=== PATIENT | male | born 1940 | race Caucasian/White ===

== ENCOUNTER → 2017-03-25 | Outpatient (CLI) | payer OTHER ==
[~2017-03-25] MED LIST: ASPI1TAB83 PO; B-COTAB18 PO; CALC600T9 PO; ENAL5TAB83 PO; FINA5TAB PO; METF500T5 PO; SIMV10TA2 PO; TRAV0.00 OPB; ZINC1TAB PO; [UNRECOGNIZED DRUG - CODE] PO
[2017-03-25 09:57] LABS: ALT/SGPT 28 U/L (12-78); AST/SGOT 15 U/L (15-37); BLOOD UREA NITROGEN 19 mg/dl (7-18); BUN/CREATININE RATIO 14.4 (10-20); CARBON DIOXIDE 27 mmol/L (21-32); CHLORIDE 101 mmol/L (98-107); CHOLESTEROL 128 mg/dl (0-200); GLUCOSE 142 mg/dl (70-99); POTASSIUM 3.7 mmol/L (3.5-5.1); SODIUM 137 mmol/L (136-145); TRIGLYCERIDES 111 mg/dl (0-150); VERY LOW DENSITY LIPOPROT CALC 22 mg/dl
[2017-03-25 10:07] LABS: ALB/GLOB RATIO 1.3 (0.9-2); ALKALINE PHOSPHATASE 74 U/L (45-117); CHOLESTEROL/HDL RATIO 2.3; HDL CHOLESTEROL 56 mg/dl; LDL CHOLESTEROL CALCULATED 50 mg/dl; THYROID STIMULATING HORMONE 0.125 uIu/ml (0.300-4.500)
[2017-03-25 10:45] LABS: ESTIMATED AVERAGE GLUCOSE 134 mg/dl; HA1C FLAG Normal (Normal)
== END | disposition home or self-care (01) ==
LOC: C.LAB 07:19
PROVIDERS: ATTEND Family Medicine
DX: E11.9 Type 2 diabetes mellitus without complications (principal); I10 Essential (primary) hypertension

== ENCOUNTER → 2017-10-15 | Outpatient (CLI) | payer OTHER ==
[2017-10-15 09:27] LABS: BASO % 0.4 %; BASO ABS # 0.03 K/uL (0-0.2); EOS % 1.9 %; EOS ABS # 0.14 K/uL (0-0.5); HEMOGLOBIN 13.4 g/dL (14.0-18.0); IG# 0.01 K/uL (0.00-0.02); LYMPH % 30.5 %; LYMPH ABS # 2.22 K/uL (1.2-3.4); MEAN CELL VOLUME 85.5 fL (80-100); MEAN CORPUSCULAR HEMOGLOBIN 29.4 pg (25-34); MEAN CORPUSCULAR HGB CONC 34.4 g/dl (32-36); MEAN PLATELET VOLUME 10.4 fL (7.4-10.4); MONO % 7.4 %; MONO ABS # 0.54 K/uL (0.11-0.59); NEUT % 59.7 %; NEUT ABS # 4.35 K/uL (1.4-6.5); PLATELET COUNT 172 K/uL (130-400); RED CELL DISTRIBUTION WIDTH SD 40.3 fL (36.4-46.3); WHITE BLOOD COUNT 7.29 K/uL (4.8-10.8)
[2017-10-15 09:39] LABS: ALT/SGPT 25 U/L (12-78); AST/SGOT 17 U/L (15-37); BLOOD UREA NITROGEN 26 mg/dl (7-18); CARBON DIOXIDE 29 mmol/L (21-32); CHOLESTEROL 120 mg/dl (0-200); CREATININE 1.21 mg/dl (0.60-1.40); GLUCOSE 140 mg/dl (70-99); POTASSIUM 4.2 mmol/L (3.5-5.1); SODIUM 138 mmol/L (136-145); URIC ACID 6.3 mg/dl (2.6-7.2)
[2017-10-15 09:48] LABS: ALKALINE PHOSPHATASE 85 U/L (45-117); LDL CHOLESTEROL CALCULATED 46 mg/dl; TOTAL PROTEIN 6.9 gm/dl (6.4-8.2); TRANSFERRIN 276 mg/dl (200-360)
[2017-10-15 09:53] LABS: HEMOGLOBIN A1C 6.2 % (4.5-5.6)
== END | disposition home or self-care (01) ==
LOC: C.LAB 07:21
PROVIDERS: ATTEND Family Medicine
DX: R73.09 Other abnormal glucose (principal); E55.9 Vitamin D deficiency, unspecified; D51.9 Vitamin B12 deficiency anemia, unspecified; E78.5 Hyperlipidemia, unspecified; R53.83 Other fatigue

== ENCOUNTER → 2018-05-12 | Outpatient (CLI) | payer OTHER ==
[2018-05-12 09:31] LABS: BASO % 0.3 %; BASO ABS # 0.02 K/uL (0-0.2); EOS ABS # 0.22 K/uL (0-0.5); HEMATOCRIT 38.7 % (42-52); HEMOGLOBIN 13.7 g/dL (14.0-18.0); IG# 0.01 K/uL (0.00-0.02); LYMPH % 31.3 %; LYMPH ABS # 2.28 K/uL (1.2-3.4); MEAN CELL VOLUME 85.8 fL (80-100); MEAN CORPUSCULAR HEMOGLOBIN 30.4 pg (25-34); MEAN CORPUSCULAR HGB CONC 35.4 g/dl (32-36); MEAN PLATELET VOLUME 10.6 fL (7.4-10.4); MONO % 7.8 %; MONO ABS # 0.57 K/uL (0.11-0.59); NEUT % 57.5 %; NEUT ABS # 4.18 K/uL (1.4-6.5); PLATELET COUNT 180 K/uL (130-400); RED CELL DISTRIBUTION WIDTH CV 12.8 % (11.5-14.5); WHITE BLOOD COUNT 7.28 K/uL (4.8-10.8)
[2018-05-12 09:41] LABS: HEMOGLOBIN A1C 6.3 % (4.5-5.6)
[2018-05-12 10:05] LABS: ALBUMIN 3.8 gm/dl (3.4-5.0); ALKALINE PHOSPHATASE 76 U/L (45-117); ALT/SGPT 25 U/L (12-78); AST/SGOT 13 U/L (15-37); BLOOD UREA NITROGEN 22 mg/dl (7-18); CALCIUM 8.6 mg/dl (8.5-10.1); CARBON DIOXIDE 24 mmol/L (21-32); CHOLESTEROL 104 mg/dl (0-200); CREATININE 1.31 mg/dl (0.60-1.40); GLUCOSE 125 mg/dl (70-99); LDL CHOLESTEROL CALCULATED 38 mg/dl; SODIUM 136 mmol/L (136-145); TOTAL PROTEIN 6.9 gm/dl (6.4-8.2); TRANSFERRIN 238 mg/dl (200-360)
== END | disposition home or self-care (01) ==
LOC: C.LAB 07:06
PROVIDERS: ATTEND Family Medicine
DX: E88.81 Metabolic syndrome and other insulin resistance (principal); E55.9 Vitamin D deficiency, unspecified; D51.9 Vitamin B12 deficiency anemia, unspecified; E78.9 Disorder of lipoprotein metabolism, unspecified; R53.83 Other fatigue

== ENCOUNTER 2025-04-07 08:49 | Inpatient (IN) ==
--- NOTE | 2025-04-07 09:16 | Emergency Department Note ---
Impression & Plan Rhinovirus infection, Dementia, Generalized weakness, COPD with exacerbation ED Provider Note NAME: JOANNE UGALDE AGE: 84 SEX: M : 1940 ARRIVES VIA: Ambulance INFORMANT: Patient ED PROVIDER(S): Hardeep Vanegas MD CHIEF COMPLAINT:, Generalized weakness, confusion, shortness of breath PLAN: Disposition: admit MEDICAL DECISION MAKING: The patient is a pleasant 84-year-old gentleman with a past medical history of dementia, COPD, hypertension, hyperlipidemia, diabetes who presents to the emergency department via EMS for evaluation of generalized weakness, confusion, shortness of breath and wheezing in setting of the patient's finding him at 3 AM in the bathroom with shortness of breath and breathing heavier than usual. Prior to presentation this morning per EMS report the patient was in his usual state of health. He had a mole removed in the past week from his right lower leg. reported a fever this morning of 101. On evaluation the patient is fatigued appearing but no distress, with temperature of 37.5, heart rate in 90s and blood pressure 150s/60s and vital signs otherwise stable. He appears clinically dry. Exhibits wheezes of bilateral lung huggins with normal respiratory effort. Patient is a poor historian secondary to his dementia. He is moving all extremities equally without focal deficits. He exhibits some word finding difficulty likely in the setting of his illness in the setting of his dementia. EKG without overt acute ischemia. CXR negative for acute cardiopulmonary process per my personal preliminary review/interpretation. WBC 16K with neutrophilia but no left shift. H/H approximate to prior values. Platelets within normal limits. Chemistry without metabolic acidosis. Creatinine 2.15, similar to prior values in the setting of CKD. Lactate 0.9, within normal limits. Electrolytes without significant abnormality. Initial high-sensitivity troponin 35.2, mildly elevated nonspecific with repeat stable at 34. Lipase is not elevated. Procalcitonin is elevated at 1.12. UA without convincing evidence of infection. Respiratory BioFire was positive for enterovirus/rhinovirus. Given the patient's leukocytosis and elevated procalcitonin concern for possible superimposed bacterial infection/pneumonia a component of COPD flare. Blood culture obtained and empiric treatment initiated with IV ceftriaxone on arrival. Solu-Medrol and DuoNeb also administered. Case was discussed [place] Bet[place], [facility] [place], who will evaluate the patient for admission. Further management per admitting team. Triage Nursing notes reviewed and agree them. Prior/external medical records reviewed Vital Signs: reviewed Differential diagnosis: Infection, dehydration, metabolic abnormality, hypo/hyperglycemia, electrolyte disturbance, anemia, hypoxia, cardiac sources, intracerebral event, toxicologic, neurologic, as well as other pathologies. ER treatment provided: See below. Diagnostics interpreted by me: ECG: Sinus tachycardia, 105 bpm, no ectopy, nonspecific T wave abnormality, no overt ST ovation or depression, QTc 449, QRS 104. Cardiac Monitoring: An order for continuous cardiac monitoring was placed and demonstrated sinus tachycardia, 105 bpm, no ectopy. Laboratory studies: See below Imaging studies: See below Consultation(s): Dr. Betancourt [facility] [place] HPI: Per MDM. ROS: See above HPI for pertinent positives & negatives. A total of 10 systems reviewed and were otherwise negative. VITALS:See Below PHYSICAL EXAMINATION: GENERAL: Awake, alert, ill-appearing, in no distress HENT: Normocephalic, atraumatic. Oropharynx with dry mucous membranes and otherwise unremarkable. EYES: Normal conjunctiva. Sclera non-icteric. EOMI. No nystamgus. PEARRL. NECK: Supple. No nuchal rigidity. FROM. No JVD. RESPIRATORY: Wheezes of bilateral lung huggins with normal respiratory effort. CARDIAC: Regular rate, normal rhythm. Extremities warm and well perfused. Pulses equal. ABDOMEN: Soft, non-distended. No tenderness to palpation. No rebound or guarding. No masses. MUSCULOSKELETAL: Chest examination reveals no tenderness. The back is symmetrical on inspection without obvious abnormality. There is no CVA tenderness to palpation. No joint edema. LOWER EXTREMITIES: Calves are equal size bilaterally and non-tender. No edema. No discoloration. NEURO: Pleasant confused at baseline for dementia. Mild word finding difficulty likely secondary to dementia. Generalized weakness without focal extremity weakness. SKIN: No rash or jaundice noted. Hardeep Vanegas MD Past Med/Surg History Problem List (Updated 04/08/25 @ 00:16 by Hardeep Vanegas MD) Generalized weakness (Acute) Dementia (Acute) Rhinovirus infection (Acute) Acute metabolic encephalopathy Acute bronchitis due to Rhinovirus COPD with exacerbation (Acute) Pneumonia Elevated hemidiaphragm Allergic rhinitis with postnasal drip Multiple pulmonary nodules Ex-smoker Abnormal chest CT Chronic cough Chronic anemia Cough Stage 3b chronic kidney disease Cough Chronic kidney disease Right inguinal hernia Urinary tract infection Headache Encounter for pre-operative examination Inguinal bulge Weakness Sleep disorder Incomplete bladder emptying Impaired executive functioning Post concussion syndrome Urinary incontinence due to benign prostatic hyperplasia Postconcussion syndrome COVID COVID-19 (Acute) Chronic sinusitis Chronic bronchitis with COPD (chronic obstructive pulmonary disease) Edema Meningioma suprasellar Mild cognitive impairment Closed left fibular fracture Gastro-esophageal reflux Hypertension Hyperlipidemia Diabetes mellitus Vitamin D deficiency 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) Multinodular goiter Subclinical hyperthyroidism Medical History Osteoarthritis 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 Sleep apnea not diagnosed but witnesses Glaucoma GERD (gastroesophageal reflux disease) Hyperlipidemia Thyroid nodule just monitoring History of esophageal cancer 29 radiation treatments / 5 chemo tx, > resolved Bronchitis hx of not current Pituitary adenoma just monitoring >follow up Isa Left ankle sprain resolved Graves' disease BPH loc w urin obs/LUTS Perforated diverticulum of large intestine with surgical repair 17 inches removed of L.I > colostomy since reversed Bilateral leg edema Kidney stones pt unaware Hypertension Diabetes NIDDM, no meds Surgical History History of colon surgery History of tonsillectomy Hx of cataract extraction bilat History of colostomy reversal H/O repair of left rotator cuff History of appendectomy Family History Mother , unknown No problems noted. Father , age 25 [place] No problems noted. Brother , age 49 cardiac patient states he had a virus which affected his heart No problems noted. 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 How many Children do You have: 0 Feels Safe at Home: Yes Safety Concerns: Feels Safe At This Time Childhood Exposure to Second-Hand Smoke: No Diet Comment: watches carbs caffeine: Yes (2 cups coffee in Am and one at night) during the past year weight has: decreased > 10 lbs Dental Care, Regularly: Yes Physical Activity Frequency: 3-4 Times per Week Seatbelt Use: always Sunscreen Use: No Assistive Devices: Denture - Lower Allergies Allergies Allergy/AdvReac Type Severity Reaction Status Date / Time adhesive Allergy Intermediate blisters Verified 04/06/25 14:45 Iodinated Contrast Media Allergy Intermediate hives Verified 04/06/25 14:45 nepafenac [From Nevanac] Allergy Intermediate Rash Verified 04/06/25 14:45 bacitracin Allergy Unknown rash Verified 04/06/25 14:45 formaldehyde Allergy Unknown RASH Verified 04/06/25 14:45 levofloxacin Allergy Unknown RASH Verified 04/06/25 14:45 morphine AdvReac Mild hallucinati Verified 04/06/25 14:45 ons Home Meds Home Medications Medication Instructions Recorded Confirmed latanoprost 0.005 % eye drops 1 drp ophthalmic (eye) DAILY 12/29/20 04/07/25 timolol 0.5 % eye drops 1 drp ophthalmic (eye) DAILY 12/29/20 04/07/25 cholecalciferol (vitamin D3) 25 25 mcg PO QAM 12/25/22 04/07/25 mcg (1,000 unit) capsule lidocaine 5 % topical ointment 1 applic topical DAILY PRN Pain 01/10/25 04/07/25 linagliptin 5 mg tablet 5 mg PO DAILY 03/07/25 04/07/25 azithromycin 250 mg tablet 250 mg PO UD 04/07/25 04/07/25 Previous Rx's Medication Instructions Recorded methimazole 5 mg tablet 5 mg PO QAM #90 tabs 03/22/24 Flutter Valve #1 ea 08/30/24 albuterol sulfate 90 mcg/actuation 2 inh inhalation QID PRN prn #8.5 08/30/24 aerosol inhaler grams inhalational spacing device #1 ea 09/01/24 (BreatheRite MDI Spacer) galantamine 16 mg 24 hr 16 mg PO QAM #90 caps 10/06/24 capsule,extended release pantoprazole 40 mg tablet,delayed 40 mg PO BID 90 days #180 tabs 10/06/24 release (Protonix) prazosin 2 mg capsule 2 mg PO QPM #90 caps 10/06/24 aspirin 81 mg tablet,delayed 81 mg PO DAILY #30 tabs 01/27/25 release (Adult Low Dose Aspirin) nebulizer accessories #1 ea 01/27/25 nebulizers #1 ea 01/27/25 sodium chloride 7 % for 4 ml inhalation BID #240 mL 01/27/25 nebulization valsartan 80 mg tablet 80 mg PO QAM #90 tabs 02/02/25 spironolactone 25 1 tab PO DAILY #90 tabs 03/07/25 mg-hydrochlorothiazide 25 mg tablet budesonide 0.5 mg/2 mL suspension 0.5 mg (2 mL) inhalation BID #360 03/21/25 for nebulization mL formoterol fumarate 20 mcg/2 mL 2 ml inhalation BID #360 mL 03/21/25 solution for nebulization montelukast 10 mg tablet 10 mg PO DAILY #90 tabs 04/06/25 Results & Data (ED) Vital Signs Vital Signs - 24 hr 04/07/25 08:58 04/07/25 08:58 04/07/25 09:11 Temperature 37.5 C Temperature Source Oral Pulse Rate 98 H Pulse Rate [Apical] 100 H Respiratory Rate 20 20 Respiratory Effort / Characteristics Non-Labored Non-Labored Respiratory Depth Normal Normal Blood Pressure 154/60 H Blood Pressure [Right Arm] 154/60 H Blood Pressure Mean 91 Blood Pressure Mean [Right Arm] 91 Pulse Oximetry 93 93 93 Oxygen Delivery Method Room Air Room Air Room Air Sepsis Recent Fever Within 48 Hours Yes Sepsis New/Unexplained Change in Mental Status Yes Sepsis Action Taken by Nursing No Action Required 04/07/25 09:16 04/07/25 09:16 04/07/25 09:20 Temperature Temperature Source Pulse Rate 108 H Pulse Rate [Apical] 105 H Respiratory Rate 20 Respiratory Effort / Characteristics Non-Labored Respiratory Depth Normal Blood Pressure Blood Pressure [Right Arm] 154/60 H Blood Pressure Mean Blood Pressure Mean [Right Arm] 91 Pulse Oximetry 93 93 Oxygen Delivery Method Room Air Room Air Sepsis Recent Fever Within 48 Hours Sepsis New/Unexplained Change in Mental Status Sepsis Action Taken by Nursing 04/07/25 09:40 04/07/25 10:03 04/07/25 10:42 Temperature Temperature Source Pulse Rate Pulse Rate [Apical] 107 H 104 H 89 Respiratory Rate 20 20 20 Respiratory Effort / Characteristics Non-Labored Non-Labored Respiratory Depth Normal Normal Blood Pressure Blood Pressure [Right Arm] 146/89 H 146/89 H Blood Pressure Mean Blood Pressure Mean [Right Arm] 108 108 Pulse Oximetry 96 94 91 Oxygen Delivery Method Room Air Room Air Room Air Sepsis Recent Fever Within 48 Hours Sepsis New/Unexplained Change in Mental Status Sepsis Action Taken by Nursing 04/07/25 11:15 04/07/25 12:36 Temperature 36.6 C Temperature Source Oral Pulse Rate Pulse Rate [Apical] 83 87 Respiratory Rate 20 20 Respiratory Effort / Characteristics Non-Labored Respiratory Depth Normal Blood Pressure Blood Pressure [Right Arm] 143/67 H 140/61 Blood Pressure Mean Blood Pressure Mean [Right Arm] 92 87 Pulse Oximetry 92 98 Oxygen Delivery Method Room Air Room Air Sepsis Recent Fever Within 48 Hours Sepsis New/Unexplained Change in Mental Status Sepsis Action Taken by Nursing Laboratory Data Attestation: I reviewed the patient's lab results. 04/07/25 09:04 04/07/25 09:04 Lab Results 04/07/25 04/07/25 04/07/25 Range/Units 09:04 09:12 09:39 WBC 16.10 H (4.8-10.8) K/ul RBC 4.02 L (4.70-6.10) M/uL Hgb 11.8 L (14.0-18.0) g/dl POC Hgb 11.6 L (14.0-18.0) g/dl Hct 33.2 L (42.0-52.0) % POC Hct 34 L (42-52) % MCV 82.6 (80.0-100.0) fL MCH 29.4 (25.0-34.0) pg MCHC 35.5 (32.0-36.0) g/dL RDW Std Deviation 40.7 (36.4-46.3) fL RDW Coeff of Nereyda 13.6 (11.5-14.5) % Plt Count 156 (130-400) K/uL MPV 10.5 (9.4-12.4) fL Immature Gran % (Auto) 0.4 % Neut % (Auto) 91.7 % Lymph % (Auto) 2.0 % Mccone % (Auto) 5.7 % Eos % (Auto) 0.1 % Baso % (Auto) 0.1 % Neut # (Auto) 14.76 H (1.40-6.50) K/uL Lymph # (Auto) 0.33 L (1.20-3.40) K/uL Mccone # (Auto) 0.91 H (0.11-0.59) K/uL Eos # (Auto) 0.01 (0.00-0.50) K/uL Baso # (Auto) 0.02 (0.00-0.20) K/uL Immature Gran # (Auto) 0.07 (0.01-0.20) K/uL PT 11.8 (9.0-12.0) Seconds INR 1.1 (0.9-1.1) POC Sodium 137 (135-144) mmol/L Sodium 137 (136-145) mmol/L POC Potassium 4.4 (3.3-5.0) mmol/L Potassium 4.5 (3.5-5.1) mmol/L POC Chloride 104 (101-112) mmol/L Chloride 106 (98-107) mmol/L Carbon Dioxide 23 (21-32) mmol/L POC Total CO2 20 L (24-31) mmol/L Anion Gap 8 (3-11) POC Anion Gap 18.0 (16-25) mmol/L POC BUN 35 H (7-18) mg/dl BUN 39 H (6-23) mg/dl Creatinine 2.15 H (0.6-1.4) mg/dl POC Creatinine 2.3 H (0.6-1.3) mg/dl Est Cr Clr Drug Dosing 23.9 ml/min eGFR 29.25 BUN/Creatinine Ratio 18.1 (10-20) Glucose 153 H (70-99(Fasting)) mg/dl POC Glucose (other) 153 H (70-99) mg/dl Lactate 0.9 (0.4-2.0) mmol/L Calcium 8.6 (8.6-10.3) mg/dl POC Ioniz Calcium Justyna 1.16 (1.12-1.32) mmol/l Magnesium 1.9 (1.7-2.4) mg/dl Total Bilirubin 0.9 (0.2-1.0) mg/dl Direct Bilirubin 0.2 (0-0.2) mg/dl AST 14 (13-39) U/L ALT 9 (7-52) U/L Alkaline Phosphatase 57 (34-104) U/L Troponin I High Sens 35.2 H (0-20) pg/ml Total Protein 6.2 (6.0-8.3) gm/dl Albumin 4.0 (3.4-5.0) gm/dl Lipase 20 (11-82) U/L Procalcitonin 1.12 H (0-0.5) ng/ml Urine Color Yellow Urine Appearance Clear (Clear) Urine pH 5.5 (4.5-7.5) Ur Specific Kendall 1.014 (1.000-1.030) Urine Protein Trace H (Negative) Urine Glucose (UA) Negative (Negative) Urine Ketones Negative (Negative) Urine Blood Negative (Negative) Urine Nitrite Negative (Negative) Urine Bilirubin Negative (Negative) Urine Urobilinogen Negative (Negative) Ur Leukocyte Esterase Negative (Negative) Urine WBC (Auto) 0-5 (0-5) /hpf Urine RBC (Auto) 0-2 (0-2) /hpf U Hyaline Cast (Auto) 0-2 (0-2) /lpf U Epithel Cells (Auto) 0-2 (0-2) /hpf Urine Bacteria (Auto) None Seen (None Seen) Urine Comment Adenovirus (PCR) Not Detected (NotDetected) B. pertussis DNA (PCR) Not Detected (NotDetected) B.parapertussis DNA PCR Not Detected (NotDetected) C. pneumoniae DNA (PCR) Not Detected (NotDetected) Coronavirus OC43 (PCR) Not Detected (NotDetected) Coronavirus HKU1 (PCR) Not Detected (NotDetected) Coronavirus 229E (PCR) Not Detected (NotDetected) SARS-CoV-2 (PCR) Not Detected (NotDetected) Coronavirus NL63 (PCR) Not Detected (NotDetected) Human Metapneumovir PCR Not Detected (NotDetected) Influenza Type A (PCR) Not Detected (NotDetected) Influenza Type B (PCR) Not Detected (NotDetected) M. pneumoniae (PCR) Not Detected (NotDetected) Parainfluenza 1 (PCR) Not Detected (NotDetected) Parainfluenza 2 (PCR) Not Detected (NotDetected) Parainfluenza 3 (PCR) Not Detected (NotDetected) Parainfluenza 4 (PCR) Not Detected (NotDetected) RSV (PCR) Not Detected (NotDetected) Entero/Rhino (PCR) DETECTED A (NotDetected) 04/07/25 Range/Units 11:25 WBC (4.8-10.8) K/ul RBC (4.70-6.10) M/uL Hgb (14.0-18.0) g/dl POC Hgb (14.0-18.0) g/dl Hct (42.0-52.0) % POC Hct (42-52) % MCV (80.0-100.0) fL MCH (25.0-34.0) pg MCHC (32.0-36.0) g/dL RDW Std Deviation (36.4-46.3) fL RDW Coeff of Nereyda (11.5-14.5) % Plt Count (130-400) K/uL MPV (9.4-12.4) fL Immature Gran % (Auto) % Neut % (Auto) % Lymph % (Auto) % Mccone % (Auto) % Eos % (Auto) % Baso % (Auto) % Neut # (Auto) (1.40-6.50) K/uL Lymph # (Auto) (1.20-3.40) K/uL Mccone # (Auto) (0.11-0.59) K/uL Eos # (Auto) (0.00-0.50) K/uL Baso # (Auto) (0.00-0.20) K/uL Immature Gran # (Auto) (0.01-0.20) K/uL PT (9.0-12.0) Seconds INR (0.9-1.1) POC Sodium (135-144) mmol/L Sodium (136-145) mmol/L POC Potassium (3.3-5.0) mmol/L Potassium (3.5-5.1) mmol/L POC Chloride (101-112) mmol/L Chloride (98-107) mmol/L Carbon Dioxide (21-32) mmol/L POC Total CO2 (24-31) mmol/L Anion Gap (3-11) POC Anion Gap (16-25) mmol/L POC BUN (7-18) mg/dl BUN (6-23) mg/dl Creatinine (0.6-1.4) mg/dl POC Creatinine (0.6-1.3) mg/dl Est Cr Clr Drug Dosing ml/min eGFR BUN/Creatinine Ratio (10-20) Glucose (70-99(Fasting)) mg/dl POC Glucose (other) (70-99) mg/dl Lactate (0.4-2.0) mmol/L Calcium (8.6-10.3) mg/dl POC Ioniz Calcium Justyna (1.12-1.32) mmol/l Magnesium (1.7-2.4) mg/dl Total Bilirubin (0.2-1.0) mg/dl Direct Bilirubin (0-0.2) mg/dl AST (13-39) U/L ALT (7-52) U/L Alkaline Phosphatase (34-104) U/L Troponin I High Sens 34.6 H (0-20) pg/ml Total Protein (6.0-8.3) gm/dl Albumin (3.4-5.0) gm/dl Lipase (11-82) U/L Procalcitonin (0-0.5) ng/ml Urine Color Urine Appearance (Clear) Urine pH (4.5-7.5) Ur Specific Kendall (1.000-1.030) Urine Protein (Negative) Urine Glucose (UA) (Negative) Urine Ketones (Negative) Urine Blood (Negative) Urine Nitrite (Negative) Urine Bilirubin (Negative) Urine Urobilinogen (Negative) Ur Leukocyte Esterase (Negative) Urine WBC (Auto) (0-5) /hpf Urine RBC (Auto) (0-2) /hpf U Hyaline Cast (Auto) (0-2) /lpf U Epithel Cells (Auto) (0-2) /hpf Urine Bacteria (Auto) (None Seen) Urine Comment Adenovirus (PCR) (NotDetected) B. pertussis DNA (PCR) (NotDetected) B.parapertussis DNA PCR (NotDetected) C. pneumoniae DNA (PCR) (NotDetected) Coronavirus OC43 (PCR) (NotDetected) Coronavirus HKU1 (PCR) (NotDetected) Coronavirus 229E (PCR) (NotDetected) SARS-CoV-2 (PCR) (NotDetected) Coronavirus NL63 (PCR) (NotDetected) Human Metapneumovir PCR (NotDetected) Influenza Type A (PCR) (NotDetected) Influenza Type B (PCR) (NotDetected) M. pneumoniae (PCR) (NotDetected) Parainfluenza 1 (PCR) (NotDetected) Parainfluenza 2 (PCR) (NotDetected) Parainfluenza 3 (PCR) (NotDetected) Parainfluenza 4 (PCR) (NotDetected) RSV (PCR) (NotDetected) Entero/Rhino (PCR) (NotDetected) Administered Medications Benzonatate (Benzonatate 100 Mg Capsule) 100 mg PO TID [facility] Stop: 05/07/25 14:59 Last Admin: 04/07/25 20:52 Dose: 100 mg Documented By: Admin: 04/07/25 14:57 Dose: 100 mg Documented By: FREYA Budesonide (Budesonide 0.5 Mg/2 Ml Vial (Pulmicort)) 0.5 mg INH BIDR ONEL Stop: 05/07/25 18:59 Last Admin: 04/07/25 20:03 Dose: 0.5 mg Documented By: TMP Formoterol Fumarate (Formoterol 20 Mcg/2 Ml Vial) 20 mcg INH BIDR ONEL Stop: 05/07/25 18:59 Last Admin: 04/07/25 20:03 Dose: 20 mcg Documented By: TMP Guaifenesin (Guaifenesin Sugar Free 100 Mg/5 Ml Udc) 100 mg PO QID [facility] Stop: 05/07/25 16:59 Last Admin: 04/07/25 20:52 Dose: 100 mg Documented By: Admin: 04/07/25 18:19 Dose: 100 mg Documented By: ASTRID Methylprednisolone 40 mg/ (Syringe) 0.64 mls @ 1.5 mls/min IV BID ONEL Stop: 05/07/25 20:59 Last Admin: 04/07/25 20:54 Dose: 1.5 mls/min Documented By: ANABEL Insulin Aspart (Insulin Aspart Per Unit Charge) 0 units SC ACHS [facility] Stop: 05/07/25 16:29 Last Admin: 04/07/25 20:53 Dose: 1 units Documented By: ANABEL Co-signed By: [id number] Admin: 04/07/25 17:54 Dose: 4 units Documented By: ASTRID Co-signed By: CORINNE Melatonin (Melatonin 3 Mg Tab) 3 mg PO HS ONEL Stop: 05/07/25 20:59 Last Admin: 04/07/25 20:53 Dose: 3 mg Documented By: ANABEL Pantoprazole Sodium (Pantoprazole 40 Mg Tab) 40 mg PO BID ONEL Stop: 05/07/25 20:59 Last Admin: 04/07/25 20:54 Dose: 40 mg Documented By: ANABEL Prazosin HCl (Prazosin Hcl 1 Mg Cap) 2 mg PO QPM ONEL Stop: 05/07/25 20:59 Last Admin: 04/07/25 20:55 Dose: 2 mg Documented By: ANABEL Sodium Chloride (Sodium Chlor 7% 4 Ml Neb) 4 ml INH BIDR ONEL Stop: 05/07/25 18:59 Last Admin: 04/07/25 20:03 Dose: 4 ml Documented By: TMP Discontinued Medications Albuterol (Albut/Ipratrop 3mg/0.5mg Neb 3 Ml Vial) 3 ml NEB NOW STA; Protocol Stop: 04/07/25 09:11 Last Admin: 04/07/25 09:28 Dose: 3 ml Documented By: GRACIELA Sodium Chloride (Nss) 500 mls @ 999 mls/hr IV .Q31M ONE Stop: 04/07/25 09:40 Last Infusion: 04/07/25 10:03 Dose: Infused Documented By: Admin: 04/07/25 09:28 Dose: 999 mls/hr Documented By: GRACIELA Acetaminophen (Ofirmev) 1,000 mg in 100 mls @ 400 mls/hr IV NOW STA Stop: 04/07/25 09:24 Last Infusion: 04/07/25 10:02 Dose: Infused Documented By: Admin: 04/07/25 09:29 Dose: 400 mls/hr Documented By: GRACIELA Ceftriaxone Sodium (Rocephin) 2,000 mg in 50 mls @ 100 mls/hr IV NOW STA Stop: 04/07/25 09:39 Last Infusion: 04/07/25 10:03 Dose: Infused Documented By: Admin: 04/07/25 09:27 Dose: 100 mls/hr Documented By: GRACIELA Azithromycin (Zithromax) 500 mg in 255 mls @ 127.5 mls/hr IV NOW ONE Stop: 04/07/25 15:07 Last Infusion: 04/07/25 15:56 Dose: Infused Documented By: Admin: 04/07/25 13:43 Dose: 127.5 mls/hr Documented By: QGV Methylprednisolone (Methylprednisolone 125 Mg/2 Ml Vial) 60 mg IV NOW STA Stop: 04/07/25 09:11 Last Admin: 04/07/25 09:28 Dose: 60 mg Documented By: GRACIELA Imaging Data Radiologist's Impression: Chest X-Ray 04/07/25 09:10 XR chest 1V portable CLINICAL HISTORY: Sepsis COMPARISON STUDY: 01/27/2025 FINDINGS: Stable mild cardiomegaly without pulmonary vascular congestion. Stable mild prominence of the upper mediastinum, seen to be due to thyroid goiter and upper mediastinal vessels on the prior chest CT. No consolidation or pleural effusion. No pneumothorax. IMPRESSION: No acute findings. ACT 112: Negative or not required by law. Electronically signed by: Joanne Boucher M.D. 04/07/2025 10:38 AM Discharge Plan Visit Data Chief Complaint: Altered Mental Status ED Provider: Hardeep Vanegas Discharge Problem: Rhinovirus infection, Dementia, Generalized weakness, COPD with exacerbation Patient Disposition: Admitted As Inpatient Condition: Fair Discharge Instructions Interventions: ED Discharge Assessment Last Done: 04/07/25 13:55 Discharge Problem: Dementia Qualifiers: Dementia type: unspecified type Dementia severity: unspecified severity D ementia behavioral or psychological symptom: without behavioral, psychotic, or mood disturbance or anxiety Qualified Code(s): F03.90 - Unspecified dementia, unspecified severity, without behavioral disturbance, psychotic disturbance, mood disturbance, and anxiety
[2025-04-07 09:27] LABS: iSTAT Creatinine 2.3 mg/dl (0.6-1.3); iSTAT Hemoglobin 11.6 g/dl (14.0-18.0); iSTAT Ionized Calcium 1.16 mmol/l (1.12-1.32); iSTAT Potassium 4.4 mmol/L (3.3-5.0)
[2025-04-07] MEDS: cefTRIAXone SODIUM 2,000 MG/50 ML BAG IV STA (09:27)
[2025-04-07] MEDS: SODIUM CHLORIDE 0.9% 500 ML IV ONE (09:28)
[2025-04-07] MEDS: ALBUT/IPRATROP 3MG/0.5MG NEB 3 ML VIAL NEB STA (09:28)
[2025-04-07] MEDS: methylPREDNISolone 125 MG/2 ML VIAL IV STA (09:28)
[2025-04-07] MEDS: ACETAMINOPHEN 1,000 MG/100 ML VIAL IV STA (09:29)
[2025-04-07 09:32] LABS: Hematocrit (blood only) 33.2 % (42.0-52.0); Hemoglobin 11.8 g/dl (14.0-18.0); Mean Corpuscular Hemoglobin 29.4 pg (25.0-34.0); Mean Corpuscular Hgb Conc 35.5 g/dL (32.0-36.0); Mean Corpuscular Volume 82.6 fL (80.0-100.0); Mean Platelet Volume 10.5 fL (9.4-12.4); Platelet Count 156 K/uL (130-400); RDW Coefficient of Variation 13.6 % (11.5-14.5); RDW Standard Deviation 40.7 fL (36.4-46.3); Red Blood Count 4.02 M/uL (4.70-6.10)
[2025-04-07 09:48] LABS: Basophils # (auto) 0.02 K/uL (0.00-0.20); Basophils % (auto) 0.1 %; Eosinophils # (auto) 0.01 K/uL (0.00-0.50); Eosinophils % (auto) 0.1 %; Immature Granulocytes # (auto) 0.07 K/uL (0.01-0.20); Immature Granulocytes % (auto) 0.4 %; Lymphocytes # (auto) 0.33 K/uL (1.20-3.40); Monocytes # (auto) 0.91 K/uL (0.11-0.59); Monocytes % (auto) 5.7 %; Neutrophils # (auto) 14.76 K/uL (1.40-6.50); Neutrophils % (auto) 91.7 %
[2025-04-07 09:49] LABS: BUN Creatinine Ratio 18.1 (10-20); Bilirubin Direct 0.2 mg/dl (0-0.2); Bilirubin,Total 0.9 mg/dl (0.2-1.0); Calcium 8.6 mg/dl (8.6-10.3); Creatinine Clr Calc Pharmacy 23.9 ml/min; Magnesium 1.9 mg/dl (1.7-2.4); Potassium 4.5 mmol/L (3.5-5.1); Total Protein 6.2 gm/dl (6.0-8.3)
[2025-04-07 09:55] LABS: Troponin I High Sensitivity 35.2 pg/ml (0-20)
[2025-04-07 09:57] LABS: INR 1.1 (0.9-1.1); Prothrombin Time 11.8 Seconds (9.0-12.0)
[2025-04-07 10:14] LABS: Appearance Urine Clear (Clear); Bacteria Urine Automated None Seen (None Seen); Bilirubin Urine Negative (Negative); Blood Urine Negative (Negative); Cast Urine Automated 0-2 /lpf (0-2); Color Urine Yellow; Epithelial Cell Urine Auto 0-2 /hpf (0-2); Glucose Urine UA Negative (Negative); Ketones Urine Negative (Negative); Leukocyte Esterase Urine Negative (Negative); Nitrite Urine Negative (Negative); Protein Urine Trace (Negative); RBC Urine Automated 0-2 /hpf (0-2); Specific Gravity Urine 1.014 (1.000-1.030); Urobilinogen Urine Negative (Negative); WBC Urine Automated 0-5 /hpf (0-5); pH Urine 5.5 (4.5-7.5)
[2025-04-07 10:33] LABS: Adenovirus PCR Not Detected (NotDetected); Bordetella parapertussis PCR Not Detected (NotDetected); Bordetella pertussis PCR Not Detected (NotDetected); Chlamydia pneumoniae PCR Not Detected (NotDetected); Coronavirus 229E PCR Not Detected (NotDetected); Coronavirus CoV-2 (COVID19)PCR Not Detected (NotDetected); Coronavirus HKU1 PCR Not Detected (NotDetected); Coronavirus NL63 PCR Not Detected (NotDetected); Coronavirus OC43PCR Not Detected (NotDetected); Human Metapneumovirus PCR Not Detected (NotDetected); Influenza A PCR Not Detected (NotDetected); Influenza B PCR Not Detected (NotDetected); Mycoplasma pneumoniae PCR Not Detected (NotDetected); Parainfluenza Virus 1 PCR Not Detected (NotDetected); Parainfluenza Virus 2 PCR Not Detected (NotDetected); Parainfluenza Virus 3 PCR Not Detected (NotDetected); Parainfluenza Virus 4 PCR Not Detected (NotDetected); Respiratory Syncytial VirusPCR Not Detected (NotDetected); Rhinovirus/Enterovirus PCR DETECTED (NotDetected)
--- NOTE | 2025-04-07 10:39 | XRay Report ---
XR chest 1V portable CLINICAL HISTORY: Sepsis COMPARISON STUDY: 01/27/2025 FINDINGS: Stable mild cardiomegaly without pulmonary vascular congestion. Stable mild prominence of t he upper mediastinum, seen to be due to thyroid goiter and upper mediastinal vessels on the prior jos st CT. No consolidation or pleural effusion. No pneumothorax. IMPRESSION: No acute findings. ACT 112: Negative or not required by law. Electronically signed by: Rafal Boucher M.D. 04/07/2025 10:38 AM
--- NOTE | 2025-04-07 12:15 | History & Physical Report ---
Date of Service April 07, 2025 Assessment & Plan (1) COPD with exacerbation: (2) Acute bronchitis due to Rhinovirus: (3) Acute metabolic encephalopathy: (4) Stage 3b chronic kidney disease: (5) History of esophageal cancer: (6) Graves' disease: (7) BPH loc w urin obs/LUTS: (8) Diabetes: Plan 84yo male with dementia, COPD, history of esophageal cancer with initial dx in 2019 - presents via EMS from home due to worsening weakness over the last 12 hours, worsening confusion above his baseline dementia, slurry/low-pitched speech, shortness of breath, cough & chest congestion. The pulmonary symptoms have worsened over the last 2-3 days. He was actually seen by his PCP yesterday and placed on a z-pack for his respiratory illness. Took 500mg dose yesterday but no dose today as he came to the ER early this morning. Tested + for rhinovirus on [employer] in the ER today. #COPD exacerbation / acute bronchitis due to rhinovirus infection - -s/p nebs with IV solumedrol in the ER -will cont solumedrol 40mg IV BID -cont all home neb treatments -cont saline nebs BID -robitussin 100mg QID scheduled -tessalon 100mg TID scheduled -flutter valve/incentive -droplet precautions due to rhinovirus infection -NC o2 support as needed -no obvious pneumonia process on CXR today, but procal is mildly elevated and he has leukocytosis -will repeat his cxr in the am to see if any infiltrates develop -he received IV rocephin in ER - will defer ongoing use unless tomorrow's cxr shows pneumonia or he clinically worsens -he did take zithromax 500mg x 1 yesterday at home -will finish zithromax course for total of 5 days #history of esophageal cancer - -Diagnosed 06/2020, stage III -S/p chemo and radiation -no recurrence; cancer-free since -last seen by oncology 11/2024 ([facility]) -ongoing surveillance only -last EGD via [facility] system without any local recurrence -last video swallow 2022 with esophageal dysmotility but no aspiration; denies any aspiration/dysphagia at home -cont PPI twice daily #abnormal chest CT - -in 11/[address] showing multifocal pneumonia -Dr Vides from pulmonary saw patient earlier this month in pulm clinic -he advised repeat chest CT in April 2025 -if patient worsens while here consider performing that chest CT during this hospitalization #acute metabolic encephalopathy in setting of dementia - -dementia is fairly advanced although he is still able to perform many ADLs independently -acute met encephalopathy is 2nd to his rhinovirus infection -if mental status worsens low threshold for CT head or MRI brain -supportive care; avoid sedatives -melatonin HS #T2DM - -last a1c 6.4% in December 2024 -repeat a1c in am tomorrow -novolog SSI -add lantus 8 units daily starting tomorrow -in light of IV steroids likely to need multiple adjustments -of note - he is only on linagliptin at home - will hold for now #hyperthyroidism - -cont methimazole 5mg daily -TSH earlier this spring was wnl #HTN - -some BPs are low-normal today -hold HCTZ and spironolactone for now; resume 1 or both meds as needed -cont ARB #CKD stage 3b/4 - -baseline creatinine low 2's/upper 1's -BMP am for stability -hold HCTZ/aldactone for now but cont ARB #glaucoma - -cont all home eye drops #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 - -follows with [facility]; ongoing surveillance only -follows with ophtho as well #BPH - -cont prazosin daily -no significant LUTS by report #DVT Proph - -add heparin 5000 BID starting tomorrow #right kovasc ulcer - -per this is from 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 The pulmonary symptoms have worsened over the last 2- 3 days. He was actually seen by his PCP yesterday and placed on a z-pack for his respiratory illness. Took 500mg dose yesterday but no dose today as he came to the ER early this morning. As patient is sleepy/altered he was unable to provide any meaningful history/ROS during my visit. Thus, his who was at bedside provided the majority of the history. His reports that in the middle of the night/early this am he somehow managed to get himself to the bathroom. However, he was so weak that he had a hard time getting off the toilet; had to assist him back to bed. This is quite atypical for him as he walks independently, performs his ADLs, is continent of bowel/bladder, feeds himself, etc. His noted he was very dyspneic when he walked back to bed from the bathroom. For the rest of the night he had severe cough, chest congestion, "rattling" and wheezing. Pt's denies any h/o dysphagia or overt aspiration. No coughing or choking with food/beverages. Allergies Allergy/AdvReac Type Severity Reaction Status Date / Time adhesive Allergy Intermediate blisters Verified 04/06/25 14:45 Iodinated Contrast Media Allergy Intermediate hives Verified 04/06/25 14:45 nepafenac [From [facility]] Allergy Intermediate Rash Verified 04/06/25 14:45 bacitracin Allergy Unknown rash Verified 04/06/25 14:45 formaldehyde Allergy Unknown RASH Verified 04/06/25 14:45 levofloxacin Allergy Unknown RASH Verified 04/06/25 14:45 morphine AdvReac Mild hallucinati Verified 04/06/25 14:45 ons Home Medications Medication Instructions Recorded Confirmed Type latanoprost 0.005 % eye drops 1 drp ophthalmic (eye) DAILY 12/29/20 04/07/25 History timolol 0.5 % eye drops 1 drp ophthalmic (eye) DAILY 12/29/20 04/07/25 History cholecalciferol (vitamin D3) 25 25 mcg PO QAM 12/25/22 04/07/25 History mcg (1,000 unit) capsule methimazole 5 mg tablet 5 mg PO QAM #90 tabs 03/22/24 04/07/25 Rx Flutter Valve #1 ea 08/30/24 04/06/25 Rx albuterol sulfate 90 mcg/actuation 2 inh inhalation QID PRN prn #8.5 08/30/24 04/07/25 Rx aerosol inhaler grams inhalational spacing device #1 ea 09/01/24 04/06/25 Rx (BreatheRite MDI Spacer) galantamine 16 mg 24 hr 16 mg PO QAM #90 caps 10/06/24 04/07/25 Rx capsule,extended release pantoprazole 40 mg tablet,delayed 40 mg PO BID 90 days #180 tabs 10/06/24 04/07/25 Rx release (Protonix) prazosin 2 mg capsule 2 mg PO QPM #90 caps 10/06/24 04/07/25 Rx lidocaine 5 % topical ointment 1 applic topical DAILY PRN Pain 01/10/25 04/07/25 History aspirin 81 mg tablet,delayed 81 mg PO DAILY #30 tabs 01/27/25 04/07/25 Rx release (Adult Low Dose Aspirin) nebulizer accessories #1 ea 01/27/25 04/06/25 Rx nebulizers #1 ea 01/27/25 04/06/25 Rx sodium chloride 7 % for 4 ml inhalation BID #240 mL 01/27/25 04/07/25 Rx nebulization valsartan 80 mg tablet 80 mg PO QAM #90 tabs 02/02/25 04/07/25 Rx linagliptin 5 mg tablet 5 mg PO DAILY 03/07/25 04/07/25 History spironolactone 25 1 tab PO DAILY #90 tabs 03/07/25 04/07/25 Rx mg-hydrochlorothiazide 25 mg tablet budesonide 0.5 mg/2 mL suspension 0.5 mg (2 mL) inhalation BID #360 03/21/25 04/07/25 Rx for nebulization mL formoterol fumarate 20 mcg/2 mL 2 ml inhalation BID #360 mL 03/21/25 04/07/25 Rx solution for nebulization montelukast 10 mg tablet 10 mg PO DAILY #90 tabs 04/06/25 04/07/25 Rx azithromycin 250 mg tablet 250 mg PO UD 04/07/25 04/07/25 History Past Med/Surg History Problem List Generalized weakness (Acute) Dementia (Acute) Rhinovirus infection (Acute) Acute metabolic encephalopathy Acute bronchitis due to Rhinovirus COPD with exacerbation (Acute) Pneumonia Elevated hemidiaphragm Allergic rhinitis with postnasal drip Multiple pulmonary nodules Ex-smoker Abnormal chest CT Chronic cough Chronic anemia Cough Stage 3b chronic kidney disease Cough Chronic kidney disease Right inguinal hernia Urinary tract infection Headache Encounter for pre-operative examination Inguinal bulge Weakness Sleep disorder Incomplete bladder emptying Impaired executive functioning Post concussion syndrome Urinary incontinence due to benign prostatic hyperplasia Postconcussion syndrome COVID COVID-19 (Acute) Chronic sinusitis Chronic bronchitis with COPD (chronic obstructive pulmonary disease) Edema Meningioma suprasellar Mild cognitive impairment Closed left fibular fracture Gastro-esophageal reflux Hypertension Hyperlipidemia Diabetes mellitus Vitamin D deficiency 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) Multinodular goiter Subclinical hyperthyroidism Medical History Osteoarthritis 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 Sleep apnea not diagnosed but witnesses Glaucoma GERD (gastroesophageal reflux disease) Hyperlipidemia Thyroid nodule just monitoring History of esophageal cancer 29 radiation treatments / 5 chemo tx, > resolved Bronchitis hx of not current Pituitary adenoma just monitoring >follow up Isa Left ankle sprain resolved Graves' disease BPH loc w urin obs/LUTS Perforated diverticulum of large intestine with surgical repair 17 inches removed of L.I > colostomy since reversed Bilateral leg edema Kidney stones pt unaware Hypertension Diabetes NIDDM, no meds Surgical History History of colon surgery History of tonsillectomy Hx of cataract extraction bilat History of colostomy reversal H/O repair of left rotator cuff History of appendectomy Family History Mother , unknown No problems noted. Father , age 25 [place] No problems noted. Brother , age 49 cardiac patient states he had a virus which affected his heart No problems noted. Sister Diabetes Social History (Updated 04/08/25 @ 04:22 by Jeremías Betancourt MD) Smoking Status: Former smoker Tobacco Type: Cigarettes Age Started Using Tobacco: 15; Age Quit Using Tobacco: 45; packs per day: 3; Second Hand Exposure: No; Do You Dip or Chew Tobacco: No; Hx Alcohol Use: No Hx Substance Use: No Preferred Language: Vincentian Communication Ability: Effective Visual Impairment: No Limitations Hearing Ability: Normal [employer] Consultant Required: No Beliefs That Will Affect Care: None marital status: Current Living Situation: Spouse current occupational status: retired current occupation: retired from the [employer]; 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 How many Children do You have: 2 How many Children do You have Comment: step-kids Feels Safe at Home: Yes Childhood Exposure to Second-Hand Smoke: No Diet Comment: watches carbs caffeine: Yes (2 cups coffee in Am and one at night) during the past year weight has: decreased > 10 lbs Dental Care, Regularly: Yes Physical Activity Frequency: 3-4 Times per Week Seatbelt Use: always Sunscreen Use: No Assistive Devices: Denture - Lower Review of Systems Review of Systems: Unobtainable due to cognitive status reports no vomiting, no diarrhea no report of chest pain he did have bladder incontinence this morning which is highly unusual for him poor appetite today per pt's - he typically is NOT oriented to date/year/place but is oriented to person Physical Exam Physical Exam: gen - lying flat in bed, coughing, confused, slept most of the visit; no distress eyes - PERRL; subconjunctival hemorrhage right sclera; mild bletharitis vs conjunctivitis b/l HENT - MMM, no lesions neck - no JVD, no lymph nodes heart - RRR, s1 s2, no murmur lungs - diffuse wheezes b/l, b/l basilar rales, coughing; no increased work of breathing abd - soft NT ND BS+, no HSM ext - <1+ edema b/l shins/feet; pulses b/l feet 2+ neuro - no focal deficits, 5/5 x 4 exts, no facial droop; speech low-pitched, modestly slurry but no true aphasia psych - oriented to person only skin - right kovacs - prior Mohs surgery site with open ulceration but no cellulitis or purulence; area is about 1.5cm in diameter Results & Data Results & Data Vital Signs (Past 12 Hours) Vital Signs Temp Pulse Pulse Resp BP BP Pulse Ox 04/07/25 11:15 36.6 C 83 20 143/67 H 92 04/07/25 10:42 89 20 146/89 H 91 04/07/25 10:03 104 H 20 146/89 H 94 04/07/25 09:40 107 H 20 96 04/07/25 09:20 108 H 04/07/25 09:16 105 H 20 154/60 H 93 04/07/25 09:16 93 04/07/25 09:11 100 H 20 154/60 H 93 04/07/25 08:58 93 04/07/25 08:58 37.5 C 98 H 20 154/60 H 93 O2 Del Method 04/07/25 11:15 Room Air 04/07/25 10:42 Room Air 04/07/25 10:03 Room Air 04/07/25 09:40 Room Air 04/07/25 09:20 04/07/25 09:16 Room Air 04/07/25 09:16 Room Air 04/07/25 09:11 Room Air 04/07/25 08:58 Room Air 04/07/25 08:58 Room Air Laboratory Results Laboratory Results - last 24 hr 04/07/25 04/07/25 04/07/25 09:04 09:12 09:39 WBC 16.10 H RBC 4.02 L Hgb 11.8 L POC Hgb 11.6 L Hct 33.2 L POC Hct 34 L MCV 82.6 MCH 29.4 MCHC 35.5 RDW Std Deviation 40.7 RDW Coeff of Nereyda 13.6 Plt Count 156 MPV 10.5 Immature Gran % (Auto) 0.4 Neut % (Auto) 91.7 Lymph % (Auto) 2.0 Glenn % (Auto) 5.7 Eos % (Auto) 0.1 Baso % (Auto) 0.1 Neut # (Auto) 14.76 H Lymph # (Auto) 0.33 L Glenn # (Auto) 0.91 H Eos # (Auto) 0.01 Baso # (Auto) 0.02 Immature Gran # (Auto) 0.07 PT 11.8 INR 1.1 POC Sodium 137 Sodium 137 POC Potassium 4.4 Potassium 4.5 POC Chloride 104 Chloride 106 Carbon Dioxide 23 POC Total CO2 20 L Anion Gap 8 POC Anion Gap 18.0 POC BUN 35 H BUN 39 H Creatinine 2.15 H POC Creatinine 2.3 H Est Cr Clr Drug Dosing 23.9 eGFR 29.25 BUN/Creatinine Ratio 18.1 Glucose 153 H POC Glucose (other) 153 H Lactate 0.9 Calcium 8.6 POC Ioniz Calcium Justyna 1.16 Magnesium 1.9 Total Bilirubin 0.9 Direct Bilirubin 0.2 AST 14 ALT 9 Alkaline Phosphatase 57 Troponin I High Sens 35.2 H Total Protein 6.2 Albumin 4.0 Lipase 20 Procalcitonin 1.12 H Urine Color Yellow Urine Appearance Clear Urine pH 5.5 Ur Specific [place] 1.014 Urine Protein Trace H Urine Glucose (UA) Negative Urine Ketones Negative Urine Blood Negative Urine Nitrite Negative Urine Bilirubin Negative Urine Urobilinogen Negative Ur Leukocyte Esterase Negative Urine WBC (Auto) 0-5 Urine RBC (Auto) 0-2 U Hyaline Cast (Auto) 0-2 U Epithel Cells (Auto) 0-2 Urine Bacteria (Auto) None Seen Urine Comment Adenovirus (PCR) Not Detected B. pertussis DNA (PCR) Not Detected B.parapertussis DNA PCR Not Detected C. pneumoniae DNA (PCR) Not Detected Coronavirus OC43 (PCR) Not Detected Coronavirus HKU1 (PCR) Not Detected Coronavirus 229E (PCR) Not Detected SARS-CoV-2 (PCR) Not Detected Coronavirus NL63 (PCR) Not Detected Human Metapneumovir PCR Not Detected Influenza Type A (PCR) Not Detected Influenza Type B (PCR) Not Detected M. pneumoniae (PCR) Not Detected Parainfluenza 1 (PCR) Not Detected Parainfluenza 2 (PCR) Not Detected Parainfluenza 3 (PCR) Not Detected Parainfluenza 4 (PCR) Not Detected RSV (PCR) Not Detected Entero/Rhino (PCR) DETECTED A 04/07/25 11:25 WBC RBC Hgb POC Hgb Hct POC Hct MCV MCH MCHC RDW Std Deviation RDW Coeff of Nereyda Plt Count MPV Immature Gran % (Auto) Neut % (Auto) Lymph % (Auto) Glenn % (Auto) Eos % (Auto) Baso % (Auto) Neut # (Auto) Lymph # (Auto) Glenn # (Auto) Eos # (Auto) Baso # (Auto) Immature Gran # (Auto) PT INR POC Sodium Sodium POC Potassium Potassium POC Chloride Chloride Carbon Dioxide POC Total CO2 Anion Gap POC Anion Gap POC BUN BUN Creatinine POC Creatinine Est Cr Clr Drug Dosing eGFR BUN/Creatinine Ratio Glucose POC Glucose (other) Lactate Calcium POC Ioniz Calcium Justyna Magnesium Total Bilirubin Direct Bilirubin AST ALT Alkaline Phosphatase Troponin I High Sens 34.6 H Total Protein Albumin Lipase Procalcitonin Urine Color Urine Appearance Urine pH Ur Specific [place] Urine Protein Urine Glucose (UA) Urine Ketones Urine Blood Urine Nitrite Urine Bilirubin Urine Urobilinogen Ur Leukocyte Esterase Urine WBC (Auto) Urine RBC (Auto) U Hyaline Cast (Auto) U Epithel Cells (Auto) Urine Bacteria (Auto) Urine Comment Adenovirus (PCR) B. pertussis DNA (PCR) B.parapertussis DNA PCR C. pneumoniae DNA (PCR) Coronavirus OC43 (PCR) Coronavirus HKU1 (PCR) Coronavirus 229E (PCR) SARS-CoV-2 (PCR) Coronavirus NL63 (PCR) Human Metapneumovir PCR Influenza Type A (PCR) Influenza Type B (PCR) M. pneumoniae (PCR) Parainfluenza 1 (PCR) Parainfluenza 2 (PCR) Parainfluenza 3 (PCR) Parainfluenza 4 (PCR) RSV (PCR) Entero/Rhino (PCR) Diagnostic Findings Chest X-Ray 04/07/25 09:10 XR chest 1V portable CLINICAL HISTORY: Sepsis COMPARISON STUDY: 01/27/2025 FINDINGS: Stable mild cardiomegaly without pulmonary vascular congestion. Stable mild prominence of the upper mediastinum, seen to be due to thyroid goiter and upper mediastinal vessels on the prior chest CT. No consolidation or pleural effusion. No pneumothorax. IMPRESSION: No acute findings. ACT 112: Negative or not required by law. Electronically signed by: Rafal Boucher M.D. 04/07/2025 10:38 AM EKG - my reading - sinus tach, borderline first degree AV block, flat ST segments inferior leads, otherwise no ST changes; in comparison to EKG from 2022 -- inferior changes are new Code Status & VTE Plan Code Status conditional code - no CPR, but intubation/mech ventilation is permissible on sh ort-term basis PG Care Time/CCT Total # of Minutes Spent Total Time Spent with Patient: Total time spent is greater than 50% in coordination of care (as documented) at patient's floor/unit and/or counseling patient: Coding Level of Care Code 89805 INT INP/OBS CARE 3/75MIN Diagnoses COPD with exacerbation J44.1 Acute bronchitis due to Rhinovirus J20.6 Acute metabolic encephalopathy G93.41 Stage 3b chronic kidney disease N18.32 History of esophageal cancer Z85.01 Graves' disease E05.00 BPH loc w urin obs/LUTS N40.1 Diabetes E11.9
[2025-04-07] MEDS: AZITHROMYCIN 500 MG/255 ML BAG IV ONE (13:43)
[2025-04-07] MEDS ORDERED: ACETAMINOPHEN 325 MG TAB PO PRN (14:36)
[2025-04-07] MEDS ORDERED: ONDANSETRON INJ 2 MG/ML 2 ML VIAL IV PRN (14:36)
[2025-04-07] MEDS ORDERED: ALBUT/IPRATROP 3MG/0.5MG NEB 3 ML VIAL NEB PRN (14:36)
[2025-04-07] MEDS: BENZONATATE 100 MG CAPSULE PO SCH (14:57)
[2025-04-07] MEDS: INSULIN ASPART PER UNIT CHARGE SC SCH (17:54)
[2025-04-07] MEDS: guaiFENesin SUGAR FREE 100 MG/5 ML UDC PO SCH (18:19)
[2025-04-07] MEDS: FORMOTEROL 20 MCG/2 ML VIAL INH SCH (20:03)
[2025-04-07] MEDS: BUDESONIDE 0.5 MG/2 ML VIAL (PULMICORT) INH SCH (20:03)
[2025-04-07] MEDS: SODIUM CHLOR 7% 4 ML NEB INH SCH (20:03)
[2025-04-07] MEDS: MELATONIN 3 MG TAB PO SCH (20:53)
[2025-04-07] MEDS: methylPREDNISolone 40 MG in SYRINGE 0 ML IV SCH (20:54)
[2025-04-07] MEDS: PANTOprazole 40 MG TAB PO SCH (20:54)
[2025-04-07] MEDS: PRAZOSIN HCL 1 MG CAP PO SCH (20:55)
[2025-04-07] MEDS ORDERED: methylPREDNISolone 10 mg/mL (For Ped Dose < 7mg) IV SCH (21:00)
--- NOTE | 2025-04-08 05:51 | Electrocardiogram Report ---
Test Reason : Blood Pressure : */* mmHG Vent. Rate : 105 BPM Atrial Rate : 105 BPM P-R Int : 200 ms QRS Dur : 104 ms QT Int : 340 ms P-R-T Axes : -22 -13 -74 degrees QTcB Int : 449 ms Sinus tachycardia Inferior infarct , age undetermined Abnormal ECG When compared with ECG of 11-Aug-2023 05:32, Vent. rate has increased by 49 bpm Questionable change in QRS axis Nonspecific T wave abnormality, worse in Inferior leads Confirmed by Magdaleno Madden ([id number]) on 04/08/2025 5:51:06 AM Referred By: REFERRED SELF Confirmed By: Magdaleno Madden
[2025-04-08 07:16] LABS: Hematocrit (blood only) 32.5 % (42.0-52.0); Hemoglobin 11.4 g/dl (14.0-18.0); Mean Corpuscular Hemoglobin 28.9 pg (25.0-34.0); Mean Corpuscular Hgb Conc 35.1 g/dL (32.0-36.0); Mean Corpuscular Volume 82.3 fL (80.0-100.0); Mean Platelet Volume 10.7 fL (9.4-12.4); Platelet Count 156 K/uL (130-400); RDW Coefficient of Variation 13.6 % (11.5-14.5); RDW Standard Deviation 41.1 fL (36.4-46.3); Red Blood Count 3.95 M/uL (4.70-6.10)
[2025-04-08 07:27] LABS: Estimated Average Glucose 137 mg/dl; Hemoglobin A1C 6.4 % (4.5-5.6)
[2025-04-08 07:32] LABS: BUN Creatinine Ratio 21.5 (10-20); Calcium 8.8 mg/dl (8.6-10.3); Potassium 4.7 mmol/L (3.5-5.1)
--- NOTE | 2025-04-08 07:58 | XRay Report ---
EXAM: XR chest 1V portable CLINICAL HISTORY: rhinovirus, eval for pneumonia TECHNIQUE: An X-ray image of the chest is obtained in AP projection. COMPARISON: . FINDINGS: Pulmonary Parenchyma: New right lower lung zone paracardiac alveolar opacities, could be infectious, clinical correlation advised Both costophrenic recess is clear. Heart and Mediastinum: Heart size and shape are normal. No mediastinal widening or masses. No hilar or mediastinal lymphadenopathy. Bony Thorax: Bony thorax appears intact without fractures or deformities. Soft Tissues: Soft tissues overlying the chest wall are unremarkable. IMPRESSION: New right lower lung zone paracardiac alveolar opacities, could be infectious, clinical correlation advised. Electronically signed by Karan Vazquez 04-08-2025 07:57 AM
[2025-04-08 08:02] VITALS: BP 125/59; RESP 18; TEMP 97.9
[2025-04-08] MEDS: CHOLECALCIFEROL 25 MCG (1000 UNITS) TAB PO SCH (08:39)
[2025-04-08] MEDS: MONTELUKAST SODIUM 10 MG TABLET PO SCH (08:39)
[2025-04-08] MEDS: methIMAzole 5 MG TABLET PO SCH (08:40)
[2025-04-08] MEDS: VALSARTAN 80 MG TAB PO SCH (08:40)
[2025-04-08] MEDS: AZITHROMYCIN 250 MG TAB PO SCH (08:41)
[2025-04-08] MEDS: GALANTAMINE HYDROBROMIDE 8 MG CAPER PO SCH (08:41)
[2025-04-08] MEDS: LATANOPROST 0.005% OP SOLN 2.5 ML BTL OP SCH (08:41)
[2025-04-08] MEDS: ASPIRIN 81 MG ECTAB PO SCH (08:42)
[2025-04-08] MEDS: TIMOLOL MALEATE 0.5% OP SOLN 5 ML BTL OP SCH (08:42)
[2025-04-08] MEDS: HEPARIN SOD 5,000 UNIT/0.5 ML VIAL SQ SCH (08:47)
[2025-04-08] MEDS: LANTUS PER UNIT CHARGE SQ SCH (08:48)
--- NOTE | 2025-04-08 11:45 | Discharge Summary ---
Date of Service April 08, 2025 Admission HPI Per Admitting Provider 84yo male with dementia, COPD, history of esophageal cancer - presents via EMS from home due to worsening weakness over the last 12 hours, worsening confusion above his baseline dementia, slurry/low-pitched speech, shortness of breath, cough & chest congestion. The pulmonary symptoms have worsened over the last 2- 3 days. He was actually seen by his PCP yesterday and placed on a z-pack for his respiratory illness. Took 500mg dose yesterday but no dose today as he came to the ER early this morning. As patient is sleepy/altered he was unable to provide any meaningful history/ROS during my visit. Thus, his who was at bedside provided the majority of the history. His reports that in the middle of the night/early this am he somehow managed to get himself to the bathroom. However, he was so weak that he had a hard time getting off the toilet; had to assist him back to bed. This is quite atypical for him as he walks independently, performs his ADLs, is continent of bowel/bladder, feeds himself, etc. His noted he was very dyspneic when he walked back to bed from the bathroom. For the rest of the night he had severe cough, chest congestion, "rattling" and wheezing. Pt's denies any h/o dysphagia or overt aspiration. No coughing or choking with food/beverages. Admission Exam (Per Admitting) Constitutional The patient is awake, alert and oriented 3, well developed and well nourished, normocephalic and atraumatic, lying in bed and in no acute distress. HEENT--PERRL, EOMI, mucous membranes and oropharynx mildly dry Neck--supple. No JVD. No bruits. Thyroid normal, trachea midline, no adenopathy. Heart--normal S1 and S2. No murmurs, rubs or gallops. Lungs--clear bilaterally, no respiratory distress, no accessory muscle use. Abdomen--normal bowel sounds and soft. Extremities--no cyanosis or clubbing. No edema. Dermatologic--normal skin turgor, normal color, no abnormal lymph nodes, no rash. Neurologic--cranial nerves II through XII grossly intact. Rheumatologic--normal range of motion. Psychiatric--normal affect. Discharge Data Consultations 04/07/25 11:13 ED Decision to Admit Stat Hospital Course (1) COPD with exacerbation: (2) Acute bronchitis due to Rhinovirus: (3) Acute metabolic encephalopathy: (4) Stage 3b chronic kidney disease: (5) History of esophageal cancer: (6) Graves' disease: (7) BPH loc w urin obs/LUTS: (8) Diabetes: Plan 84yo male with dementia, COPD, history of esophageal cancer with initial dx in 2019 - presents via EMS from home due to worsening weakness over the last 12 h ours, worsening confusion above his baseline dementia, slurry/low-pitched speech, shortness of breath, cough & chest congestion. The pulmonary symptoms have worsened over the last 2-3 days. He was actually seen by his PCP yesterday and placed on a z-pack for his respiratory illness. Took 500mg dose yesterday but no dose today as he came to the ER early this morning. Tested + for rhinovirus on [employer] in the ER today. #COPD exacerbation / acute bronchitis due to rhinovirus infection - -No evidence of PNA on x ray -s/p nebs with IV solumedrol in the ER -will cont solumedrol 40mg IV BID -cont all home neb treatments -cont saline nebs BID -robitussin 100mg QID scheduled -tessalon 100mg TID scheduled -flutter valve/incentive -droplet precautions due to rhinovirus infection -NC o2 support as needed -Patinet feeling a lot better -No wheeze on exam -Discharge home, to complete his home azithromycin #history of esophageal cancer - -Diagnosed 06/2020, stage III -S/p chemo and radiation -no recurrence; cancer-free since -last seen by oncology 11/2024 ([facility] heme/onc) -ongoing surveillance only -last EGD via [facility] system without any local recurrence -last video swallow 2022 with esophageal dysmotility but no aspiration; denies any aspiration/dysphagia at home -cont PPI twice daily #abnormal chest CT - -in 11/[address] showing multifocal pneumonia -Dr Vides from pulmonary saw patient earlier this month in pulm clinic -he advised repeat chest CT in April 2025 -if patient worsens while here consider performing that chest CT during this hospitalization #acute metabolic encephalopathy in setting of dementia - -dementia is fairly advanced although he is still able to perform many ADLs independently -acute met encephalopathy is 2nd to his rhinovirus infection -if mental status worsens low threshold for CT head or MRI brain -supportive care; avoid sedatives -melatonin HS #T2DM - -last a1c 6.4% in December 2024 -repeat a1c in am tomorrow -novolog SSI -add lantus 8 units daily starting tomorrow -in light of IV steroids likely to need multiple adjustments -of note - he is only on linagliptin at home - will hold for now #hyperthyroidism - -cont methimazole 5mg daily -TSH earlier this spring was wnl #HTN - -some BPs are low-normal today -hold HCTZ and spironolactone for now; resume 1 or both meds as needed -cont ARB #CKD stage 3b/4 - -baseline creatinine low 2's/upper 1's -BMP am for stability -hold HCTZ/aldactone for now but cont ARB #glaucoma - -cont all home eye drops #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 - -follows with [facility]; ongoing surveillance only -follows with ophtho as well #BPH - -cont prazosin daily -no significant LUTS by report #DVT Proph - -add heparin 5000 BID starting tomorrow #right kovacs ulcer - -per this is from 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
[2025-04-08 11:54] VITALS: PULSE 92; O2SAT 91
== END 2025-04-08 12:21 | disposition home or self-care (01) | DRG 190 ==
LOC: ED 08:49 → SUATTDRO 13:07 → 2W 13:07